=== PATIENT | male | born 1945 | race Caucasian/White ===

== ENCOUNTER → 2023-05-14 | Outpatient (CLI) | payer OTHER, MEDICARE, MEDICAID, SELFPAY ==
--- NOTE | 2023-05-14 16:54 | CT_ITS ---
PROCEDURE: CT RIGHT KNEE WITHOUT CONTRAST REASON FOR EXAM: Male, 77 years old. Preoperative planning for the MakoPlasty Robotic knee surgery. Knee pain. TECHNIQUE: Transaxial CT of the hip, knee and ankle were obtained. Coronal and sagittal reconstruction images of the knee were provided. Individualized dose optimization techniques were used for this CT. COMPARISON: None. FINDINGS: Standard protocol for the preoperative planning for the MakoPlasty robotic knee surgery was performed. Osteopenia with mild arthrosis of the right hip, right knee and right tibiotalar joint. CT/Extremity Lower without Contra IMPRESSION: Preoperative MakoPlasty Robotic knee surgical CT evaluation with findings as described above. Electronically Signed: Denny Shields MD at 12:06 EDT ,
== END | disposition home or self-care (01) ==
LOC: CT 16:33
PROVIDERS: PCP Internal Medicine; Referring Provider Student in an Organized Health Care Education/Training Program; Visit Provider Student in an Organized Health Care Education/Training Program
DX: M25.561 Pain in right knee (principal)
CPT/HCPCS: 73700

== ENCOUNTER 2023-05-23 10:57 | Observation (INO) | payer OTHER, SELFPAY ==
[2023-05-14 17:54] LABS: Magnesium 2.2 mg/dL (1.6-2.6)
[2023-05-23] VITALS (12 sets, daily range): BP systolic 82–139; BP diastolic 48–98; PULSE 56–75; RESP 13–22; TEMP 35.8–36.9; O2SAT 91–98; BMI 26.2
--- NOTE | 2023-05-23 | KNEE_PTH ---
PATIENT: JAROCHO BENÍTEZ LOC: MS3 U#:[id number] AGE/SX: 77/M ROOM: NV314 RE05/23/[address]: Dr. Dawson Bang DO : 1945 BED: 1 DIS: 05/24/2023 SPEC #: [id number] RECD: 05/23/23 12:16 STATUS: MILLICENT JULIETA #: [id number] TABITHA: 05/23/23 00:[address]: Dawson Bang DEPT: SURGICAL PATHOLOGY RECD BY: Jason Faustin ENTERED: 05/23/23 12:16 SP TYPE: TOTAL KNEE OTHR DR: MD Dr. Dawson Hewitt MD Tissues: Knee, NOS Procedures: Decalcification bone/plaque Surgery Specimen Level IV HEADER OPERATION: EDWINS, robotic assisted total knee arthroplasty PRE-OP DIAGNOSIS: Osteoarthritis right knee TISSUE SUBMITTED: Right knee bone and tissue MICROSCOPIC DIAGNOSIS Bone and tissue, right knee, total knee replacement/resection: Pieces of bone with degenerative osteoarthritic changes. Fibroadipose tissue, fibroconnective tissue and reactive synovial tissue. SJ:derrick 05/27/2023 MICROSCOPIC DESCRIPTION Slides are reviewed. GROSS DESCRIPTION Received is one container designated bone and tissue right knee. The specimen consists of multiple fragments of clark-yellow bone measuring in aggregate 16.0 x 15.0 x 1.5 cm. Also in the specimen container are multiple fragments of yellow-white soft tissue measuring in aggregate 10.0 x 7.0 x 2.0 cm. A number of bony fragments contain articular surfaces consistent with tibial plateau and femoral condyle and displaying prominent osteophyte formation, eburnation and bone erosion. Ornamental Metal Worker Helper sections are submitted in two cassettes as follows: 1 - soft tissue, 2 - bone after decalcification. / AM:derrick 05/23/2023 TC:5 CPT: 86131, 49620
[2023-05-23] MEDS: Celecoxib 200 MG Capsule 400 MG PO (06:08)
[2023-05-23] MEDS: Acetaminophen 500 MG Tablet 1000 MG PO ×3 (06:08→21:10)
[2023-05-23 06:09] LABS: Bedside Glucose 127 mg/dL (74-106)
[2023-05-23] MEDS: Gabapentin 600 MG Tablet PO (06:09)
--- NOTE | 2023-05-23 06:16 | EKG12_ITS ---
Test Reason : PRE-OP Blood Pressure : / mmHG Vent. Rate : 063 BPM Atrial Rate : 063 BPM P-R Int : 154 ms QRS Dur : 088 ms QT Int : 458 ms P-R-T Axes : 031 -03 205 degrees QTc Int : 468 ms Normal sinus rhythm ST & T wave abnormality, consider inferior ischemia ST & T wave abnormality, consider anterolateral ischemia Prolonged QT Abnormal ECG No previous ECGs available Confirmed by CALVIN HUGHES, LUCA ([id number]), editorial cartoonist FRANCISCA MEHTA ([id number]) on 05/27/2023 2:41:51 PM Referred By: Dawson Bang Confirmed By:LUCA SIMPSON MD
[2023-05-23] MEDS: Lactated Ringers 1,000 ML 15 ML IV ×2 (06:32→11:38)
[2023-05-23] MEDS: Magnesium 1 GM over 15 mins IV (06:33)
[2023-05-23] MEDS: Cefazolin 2 GM in 0.9% Normal Saline 100 ML IV ×2 (08:26→16:07)
[2023-05-23] MEDS: TXA 1000mg in NS100 100ml (IVPB at Closure) 660 MG IV (08:56)
[2023-05-23] MEDS: JPS (Morphine 10mg/ml) OPERA.SITE (10:00)
[2023-05-23] MEDS: dexAMETHasone 10 MG/ML Vial IV (10:12)
[2023-05-23] MEDS: TXA 1000mg in NS100 100ml (IVPB at Incision) 660 MG IV (10:20)
--- NOTE | 2023-05-23 11:37 | PCM.OPRPT ---
Report of Operation Date of Procedure: 05/23/23 Description of Surgical Findings:: Preoperative diagnosis: Right knee primary osteoarthritis Postoperative diagnosis: Right knee primary osteoarthritis Procedure: Cemented right total knee arthroplasty Surgeon: Dawson Bang DO Operations Support Professionals: Princess Rai PA-C Anesthesia: Spinal with sedation, adductor canal block Anesthesiologist: Dr. Awad Complications: None apparent Drains: None Estimated blood loss: 50 cc Urinary output: None recorded IV fluids: 1000 cc crystalloid Specimens: Total knee resections Surgical implants: Rossana triathlon X3 asymmetric patella size a 35 x 10 mm thickness, triathlon cruciate retaining femoral #6, primary tibial baseplate #6, triathlon X3 tibial bearing insert CS 11 mm thickness Indications: This is a 77-year-old male seen in the outpatient setting diagnosed with right knee osteoarthritis with significant varus deformity. He failed nonoperative management with intra-articular corticosteroid injections, activity modification, bracing, [id number] analgesics. X-rays revealed grade 4 medial compartment changes. He also had significant patellofemoral arthritis. I recommended a right total knee arthroplasty. The risk, benefits, alternatives to procedure reviewed with patient at length and he agreed to proceed. Risks included but were not limited to bleeding, infection, loss of life or limb, need for additional surgery, persistent pain, intraoperative or postoperative fracture, instability, loosening of components, wound complications, stiffness, neurovascular injury, DVT or PE. Patient expressed understanding these risks and wished to proceed with surgery. Informed consent was obtained in the outpatient setting. Description of procedure: Patient was identified in the preoperative holding area by name, medical record number, and date of . Informed consent was confirmed with the patient. The operative knee was marked with a surgical marker. At time of his procedure, patient brought to the operative suite and positioned supine a standard operating table. Anesthesia then administered a spinal anesthetic. He was then repositioned in the supine position with all bony prominences well-padded. We then placed a well-padded pneumatic tourniquet on the operative upper thigh. The right upper extremity was brought across patient's chest throughout the procedure. We then prepped and draped the operative lower extremity in a normal, sterile orthopedic fashion. We performed a timeout with all parties in attendance in agreement with the side, site, operation be performed. No concerns were voiced and would like to proceed with surgery. 2 g Ancef was administered prior to the incision by anesthesia staff as well as 1 g IV TXA. First I exsanguinated the right lower extremity with a Esmarch bandage. Tourniquet was inflated to 250 mmHg, which remained up for approximately 70 minutes. Esmarch was removed. I planned a standard midline approach to the left knee approximately 15 cm in length. Skin was sharply incised with a 10 blade scalpel developing full-thickness layers down to the retinaculum. Layers were developed identifying the VMO. I then planned a standard medial parapatellar arthrotomy performed in flexion. The anterior horn of the medial meniscus was released. Hoffa's fat pad was then released. I then everted the patella in extension and brought the knee into 90 degrees of flexion. The anterior horn of the lateral meniscus was then released. The ACL was split in its mid substance with a 10 blade. PCL was released with a posterior drawer and electrocautery. We then brought the knee back into extension. I measured the outer diameter of the patella to be approximately 46 mm, a patellar reamer was then selected. I measured the thickness of the patella to be 28 mm. I then reamed the patella to a depth of approximately 16 mm. A protective baseplate was then placed on the patella. I then placed pins in the metaphyseal distal femur medial to lateral for the Humble arrays. In similar fashion, I made a 2 cm incision approximately a handsbreadth distal to the tibial tubercle along the medial aspect of the tibia, drilling 2 bicortical pins for the tibial array. The knee was brought into flexion. The patella was subluxed laterally but not everted. Medial and lateral retractors were placed. We then utilized the LendFriend software to confirm our planned surgical procedure and oriented with the patient's osseous anatomy. All checks with the LendFriend system were confirmed. Patient had a significant fixed varus deformity after performing stress examination utilizing the Humble software. We elected to place the tibial baseplate in approximately 2 degrees degrees of varus to allow for appropriate balancing. Sawblade was then brought in. I first started with the tibial cut, ensuring protection of the MCL and patellar tendon. A tibial wafer was then excised. I then proceeded to make the posterior femoral, anterior, anterior chamfer cuts with the same blade. Ligaments were protected with Intermedics retractors. Sawblade was then exchanged to perform the distal femoral and posterior chamfer cuts. The robot was then removed from the surgical field. Remaining loose bone and meniscus was excised carefully. Posterior osteophytes were removed from the distal femur with a curved osteotome and rongeur. Trial components were then placed. Balance was excellent in both extension and 90 degrees flexion. No mid flexion instability was apparent. I then drilled for a size 35 patella. Patella was trialed. Tracking was excellent. We then marked for tibial baseplate. Distal femoral pegs were drilled. Tibial keel was punched. Trials were removed. Periarticular block was administered. The wound was copiously irrigated with normal saline solution. Simplex cement was then mixed on the back table. Components were then cemented in place with excess cement being removed. Cement was allowed to cure with the components in full extension utilizing a 11 mm trial polyethylene component. While the cement was curing, Betadine solution was irrigated into the wound and the wound edges. After cement had cured fully, trial polyethylene was removed. Tourniquet was deflated. Hemostasis was excellent. An additional 1 g TXA was administered IV. I selected a size 11 mm polyethylene which was placed and impacted per wheel and pinion inspector recommendations. Final components appeared very well balanced with excellent range of motion. There is no significant remaining flexion contracture. The wound was copiously irrigated with normal saline solution. Capsule was closed watertight with #1 strata fix barbed suture. Deeper bursal layer was reapproximated with 0 Vicryl suture. Dermis was reapproximated buried interrupted 2-0 Vicryl suture. Skin was finally reapproximated heather. Patient tolerated the procedure well without apparent complication. He was safely awakened in the operative suite, transferred to his hospital bed and subsequently to PACU in stable condition. Need for skilled educational program assistant: Princess Rai PA-C was critical to the outcome of the case. During the course of the procedure the physician educational program assistant played a vital role. Her intimate knowledge of my steps in the procedure aided in safe and expedient completion of the procedure. The PA played a vital role in positioning particularly in obtaining the appropriate positioning. The PA was also vital in the retraction of soft tissues during the exposure and protecting vital structures. The PA was also vital and protecting soft tissues during times of bony cuts. She also played a vital role in closure with my direct supervision. The PA was also important during reduction and dislocation of the joint and trials intraoperatively. Post Operative Plan: Patient will be placed in observation overnight due to age and comorbidities. Likely plan discharge home tomorrow. Hospitalist consult ordered for medical management of multiple comorbidities. Weightbearing: Range of motion and weightbearing as tolerated right lower extremity. Antibiotics: Ancef 2 g every 8 hours x 3 doses DVT Prophylaxis: Aspirin 81 mg twice daily, SCDs, early mobilization, ANTONY hose Brown: None Dressing: Maintain silver dressing x 5 days X-Rays: 2-week x-rays in the office. Follow-up: 2 weeks in my office for staple removal
[2023-05-23] MEDS: oxyCODONE 5 MG Tablet PO (18:00)
[2023-05-23] MEDS: Senna/Docusate Sodium 1 Tablet 2 TABLET PO (21:10)
[2023-05-23] MEDS: Lisinopril 20 MG Tablet PO (21:10)
[2023-05-24] MEDS: Cefazolin 2 GM in 0.9% Normal Saline 100 ML IV ×2 (01:49→07:40)
[2023-05-24 01:53] VITALS: BP 120/60; PULSE 60; RESP 18; TEMP 36.7; O2SAT 94
[2023-05-24 03:05] VITALS: BP 133/76; PULSE 55; RESP 18; TEMP 36.4; O2SAT 95
[2023-05-24] MEDS: Acetaminophen 500 MG Tablet 1000 MG PO ×2 (05:29→14:27)
[2023-05-24 06:10] LABS: Hematocrit 37.4 % (40-54); Hemoglobin 12.6 g/dL (13.0-16.5); Mean Corp Hgb Conc 33.7 g/dL (32-36); Mean Corpuscular Hgb 30.7 pg (27.0-32.0); Mean Platelet Vol. 9.6 fl (6.2-12.0); Platelet Count 187 K/mm3 (150-450); RBC Distribution Width SD 42.8 fl (35.1-43.9); Red Blood Count 4.11 M/mm3 (4.6-6.2)
[2023-05-24 06:36] LABS: Anion Gap 8 (5-15); BUN 27 mg/dL (7-18); BUN/Creat Ratio 23.5 RATIO (10-20); Calcium,Total 9.2 mg/dL (8.5-10.1); Chloride 109 mmol/L (98-107); Creatinine, Serum 1.15 mg/dL (0.70-1.30); EST Glomerular Filtration Rate 66 mL/min (>60); Est Glom Filt Rate - Afr Amer 79 mL/min (>60); Estimated Creatinine Clearance 61.76 ml/min; Glucose 150 mg/dL (74-106); Potassium 4.7 mmol/L (3.5-5.1); Sodium Level 136 mmol/L (136-145)
[2023-05-24 07:20] VITALS: BP 126/71; PULSE 59; RESP 16; TEMP 36.7; O2SAT 93
--- NOTE | 2023-05-24 07:47 | PN.ORTHO_ITS ---
Subjective Subjective Patient seen and examined. Denies any new complaints. Denies fevers, chills, nausea vomiting, chest pain or shortness of breath. Out of bed with therapy. Objective Data Objective Data Vital Signs: Vital Signs Temp Pulse Resp BP Pulse Ox O2 Del Method O2 Flow Rate 98.0 F 59 L 16 126/71 H 93 Room Air 2 05/24/23 07:20 05/24/23 07:20 05/24/23 07:20 05/24/23 07:20 05/24/23 07:20 05/24/23 07:20 05/24/23 01:55 Oxygen Flow Rate (L/min) 2 Oxygen Delivery Method Room Air Weight: 201 lb 12.626 oz Body Mass Index (BMI) 26.2 Intake & Output: Intake and Output for Last 24 Hours 05/22/23 05/23/23 05/24/23 23:59 23:59 23:59 Intake Total 1609.75 / 1609.75 110 / 110 Output Total 1025 / 1025 360 / 360 Balance 584.75 / 584.75 -250 / -250 Lab / Micro Data Result Diagrams: 05/24/23 05:54 05/24/23 05:54 Labs: Laboratory Results - last 24 hr 05/24/23 05:54: WBC 15.0 H, RBC 4.11 L, Hgb 12.6 L, Hct 37.4 L, MCV 91.0, MCH 30.7, MCHC 33.7, RDW Std Deviation 42.8, RDW Coeff of Wesley 13.0, Plt Count 187, MPV 9.6 05/24/23 05:54: Sodium 136, Potassium 4.7, Chloride 109 H, Carbon Dioxide 19.0 L , Anion Gap 8, BUN 27 H, Creatinine 1.15, Estim Creat Clear Calc 61.76, Est GFR (MDRD) Af Amer 79, Est GFR (MDRD) Non-Af 66, BUN/Creatinine Ratio 23.5 H, Glucose 150 H, Calcium 9.2 Micro: Microbiology 05/14/23 16:46 Swab (Method) Nasal Screen MRSA/MSSA - Final Physical Exam Narrative General - A&Ox3, NAD. VSS/AF Right lower extremity -incisional dressing C/D/I. SILT Sural, Saphenous, SPN, DPN, Tibial N. distributions. DP, PT 2+. BCR. DF, PF, EHL /5. No calf TTP. Assessment & Plan Assessment/Plan (1) History of total knee arthroplasty: PLAN: POD#1 s/p right robotic assisted total knee arthroplasty - Pain control - Medicine following for medical management - PT/OT - DVT PPX -aspirin 81 mg twice daily, SCDs, ANTONY hose, early mobilization - Case management - D/C planning Anticipate discharge to home today once cleared from internal medicine and PT/OT perspective. Patient has outpatient physical therapy scheduled for next week. Follow-up scheduled with me in 2 weeks.
--- NOTE | 2023-05-24 09:21 | PN.HOSP_ITS ---
Subjective Subjective Doing well, no issues overnight. Pain is controlled Objective Data Objective Data Vital Signs: Vital Signs Temp Pulse Resp BP Pulse Ox O2 Del Method O2 Flow Rate 98.0 F 59 L 16 126/71 H 93 Room Air 2 05/24/23 07:20 05/24/23 07:20 05/24/23 07:20 05/24/23 07:20 05/24/23 07:20 05/24/23 07:20 05/24/23 01:55 Oxygen Flow Rate (L/min) 2 Oxygen Delivery Method Room Air Weight: 201 lb 12.626 oz Body Mass Index (BMI) 26.2 Intake & Output: Intake and Output for Last 24 Hours 05/23/23 05/24/23 05/25/23 03:59 03:59 03:59 Intake Total 1719.75 / 1719.75 Output Total 1025 / 1025 360 / 360 Balance 694.75 / 694.75 -360 / -360 Lab / Micro Data Result Diagrams: 05/24/23 05:54 05/24/23 05:54 Labs: Laboratory Results - last 24 hr 05/24/23 05:54: WBC 15.0 H, RBC 4.11 L, Hgb 12.6 L, Hct 37.4 L, MCV 91.0, MCH 30.7, MCHC 33.7, RDW Std Deviation 42.8, RDW Coeff of Wesley 13.0, Plt Count 187, MPV 9.6 05/24/23 05:54: Sodium 136, Potassium 4.7, Chloride 109 H, Carbon Dioxide 19.0 L , Anion Gap 8, BUN 27 H, Creatinine 1.15, Estim Creat Clear Calc 61.76, Est GFR (MDRD) Af Amer 79, Est GFR (MDRD) Non-Af 66, BUN/Creatinine Ratio 23.5 H, Glucose 150 H, Calcium 9.2 Micro: Microbiology 05/14/23 16:46 Swab (Method) Nasal Screen MRSA/MSSA - Final Physical Exam Narrative General: Alert, Oriented x3, Cooperative, No apparent distress HEENT: Atraumatic, PERRLA, EOMI, Normocephalic Oral: Moist Mucosa Neck: Supple, No JVD Lungs: Clear to auscultation, Normal air movement, No rhonchi, No wheeze, No rales Cardiovascular: Regular rate, Regular Rhythm, Normal S1, Normal S2, No murmurs Abdomen: Soft, Non Tender, Non-Distended, No Hepato-splenomegaly Extremities: No edema, Capillary Refill Less than 3 Seconds Skin: Surgical dressing CDI Musculoskeletal: No Tenderness to Palpation of Joints or Extremities Neurological: Cranial nerves II-XII grossly intact, Motor Exam 5/5 strength throughout, Sensory exam intact to light touch and pain Psych/Mental Status: Normal Affect, Appropriate Assessment & Plan Assessment/Plan (1) History of total knee arthroplasty: PLAN: Plan 1. Status post right total knee arthroplasty ? Pain management per primary ? Medically stable for discharge, leukocytosis is likely reactive to surgery 2. Hypertension, type 2 diabetes, hyperlipidemia are all chronic medical additions which complicate his care. His home medications can be continued on discharge Charges/Coding Visit Charges Office Visits / Consults: 10766 OV L3 Est
--- NOTE | 2023-05-24 09:30 | CASEMGMT ---
RHODA CHENG Assessment: Face to Face with pt for initial transition planning/care coordination assessment. RHODA CHENG introduced self and role at [facility], pt voices understanding and consents to assessment. Pt is A/O x4 and answers all questions appropriately at this time. Pt sitting up in chair in no distress. Care providers, pharmacy, and demographics verified/updated. Admitting Dx: lap robotic total knee right PCP:Rene Specialists:[facility] Bang Preferred Pharmacy: [facility] Retail Insurance: [place] benefit Prescription Benefit: yes LNOK: Jodi Bolanos, Living Arrangements: Pt lives with in a two story home with 3 steps to enter. Pt is set up for main level. Pt reports he was I in ADL's and denies concerns at home. Pt able to assist if needed at home. Transportation: Pt drives self and denies concerns with transportation. Pt to transport to medical appts until pt can drive. DME/HHC/SNF: Pt has a [facility], cane and shower chair. Pt denies hx of HHC or SNF stays. Pt states no concerns with going home at time of dc. Pt has outpt therapy set up for Saturday at [place] [facility]. Pt states no further concerns/needs. CM to follow. Advised pt to ask CM if any further question/concerns/needs arise, voices understanding. Pt Goal: Home with outpt therapy already set up Plan: Home with outpt therapy already set up
[2023-05-24] MEDS: amLODIPine 10 MG Tablet PO (10:40)
[2023-05-24] MEDS: Aspirin 81 MG TAB.CHEW PO (10:41)
[2023-05-24] MEDS: Senna/Docusate Sodium 1 Tablet 2 TABLET PO (10:41)
[2023-05-24] MEDS: Famotidine 20 MG Tablet PO (10:41)
[2023-05-24 14:14] VITALS: BP 136/66; PULSE 70; RESP 18; TEMP 36.6; O2SAT 95
[2023-05-24] MEDS: oxyCODONE 5 MG Tablet PO (14:28)
--- NOTE | 2023-05-24 14:40 | DS.PCM_ITS ---
Providers Date of Admission: 05/23/23 Primary Care Physician: Dr. Renee López MD Consultations 05/23/23 10:56 Consult: Hospitalist Routine Consulting Provider: Dawson Zhang Reason for Consult: Post op right total knee medical management EMERGENT Consult: No Notified: Yes Date Notified: 05/23/23 Time Notified: 12:10 Method of Notification: Text Reason For Visit: LAP ROBOTIC TOTAL KNEE ERAS RIGHT Diagnosis Discharge Diagnosis (1) History of total knee arthroplasty: Status: Acute Code(s): Z96.659 - Presence of unspecified artificial knee joint Plan: POD#1 s/p right robotic assisted total knee arthroplasty - Pain control - Medicine following for medical management - PT/OT - DVT PPX -aspirin 81 mg twice daily, SCDs, ANTONY hose, early mobilization - Case management - D/C planning Anticipate discharge to home today once cleared from internal medicine and PT/OT perspective. Patient has outpatient physical therapy scheduled for next week. Follow-up scheduled with me in 2 weeks. Medications at Discharge Home Medications albuterol sulfate 90 mcg/actuation aerosol inhaler 1 inh inhalation Q6H PRN SOB 05/14/23 amlodipine 10 mg tablet 10 mg PO DAILY 05/14/23 aspirin 81 mg tablet,delayed release 81 mg PO QHS 05/14/23 cholecalciferol (vitamin D3) 50 mcg (2,000 unit) capsule (Vitamin D3) 50 mcg PO DAILY 05/14/23 diphenhydramine 25 mg-acetaminophen 500 mg tablet (Tylenol PM Extra Strength) 2 tab PO QHS 05/14/23 finasteride 5 mg tablet 5 mg PO QHS 05/14/23 lisinopril 20 mg tablet 20 mg PO QHS 05/14/23 metformin 500 mg tablet,extended release 24 hr 500 mg PO BID 05/14/23 multivitamin 1 cap PO DAILY 05/14/23 naproxen sodium 220 mg tablet (Aleve) 440 mg PO BID 05/14/23 rosuvastatin 20 mg tablet (Crestor) 20 mg PO QODAY 05/14/23 Hospital Course Summary of Care Provided Minutes Spent on Discharge: 15 Hospital Course: Patient underwent uncomplicated right robotic assisted total knee arthroplasty with myself on 05/23/2023. He tolerated procedure well without apparent complication. He was placed in observation postoperatively for medical monitor ing and early convalescence. He worked well with physical occupational therapies. An internal medicine consult was placed for medical management. Patient was able to be safely discharged to home on postoperative day #1 with planned outpatient physical therapy. Physical Exam Narrative General - A&Ox3, NAD. VSS/AF Right lower extremity -incisional dressing C/D/I. SILT Sural, Saphenous, SPN, DPN, Tibial N. distributions. DP, PT 2+. BCR. DF, PF, EHL 5/5. No calf TTP. Weight / BMI Weight Weight: 201 lb 12.626 oz Body Mass Index (BMI) 26.2 ABG / Lab / Microbiology Data Result Diagrams: 05/24/23 05:54 05/24/23 05:54 Laboratory: Laboratory Results - last 24 hr 05/24/23 05:54: WBC 15.0 H, RBC 4.11 L, Hgb 12.6 L, Hct 37.4 L, MCV 91.0, MCH 30.7, MCHC 33.7, RDW Std Deviation 42.8, RDW Coeff of Wesley 13.0, Plt Count 187, MPV 9.6 05/24/23 05:54: Sodium 136, Potassium 4.7, Chloride 109 H, Carbon Dioxide 19.0 L , Anion Gap 8, BUN 27 H, Creatinine 1.15, Estim Creat Clear Calc 61.76, Est GFR (MDRD) Af Amer 79, Est GFR (MDRD) Non-Af 66, BUN/Creatinine Ratio 23.5 H, Glucose 150 H, Calcium 9.2 Microbiology: Microbiology 05/14/23 16:46 Swab (Method) Nasal Screen MRSA/MSSA - Final Meaningful Use Info Meaningful Use Diagnoses (Choose all that apply): None applicable Discharge Plan Admission Admit Date/Time: 05/23/23 10:57 Primary Reason for Your Visit: Right total knee arthroplasty Attending Provider: Dawson Bang Primary Care Provider: Renee López Consulting Providers: Dawson Zhang Instructions Additional Instructions / Restrictions: Follow preprinted instructions from your surgeons office. Discharge Orders/Prescriptions Prescriptions: Continued lisinopril 20 mg Tablet 20 mg PO QHS aspirin 81 mg Tablet,Delayed Release (Dr/Ec) 81 mg PO QHS amlodipine 10 mg Tablet 10 mg PO DAILY naproxen sodium [Aleve] 220 mg Tablet 440 mg PO BID diphenhydramine-acetaminophen [Tylenol PM Extra Strength] 25-500 mg Tablet 2 tab PO QHS multivitamin Capsule 1 cap PO DAILY metformin 500 mg Tablet Extended Release 24 Hr 500 mg PO BID finasteride 5 mg Tablet 5 mg PO QHS rosuvastatin [Crestor] 20 mg Tablet 20 mg PO QODAY cholecalciferol (vitamin D3) [Vitamin D3] 50 mcg (2,000 unit) Capsule 50 mcg PO DAILY albuterol sulfate 90 mcg/actuation Hfa Aerosol Inhaler 1 inh INHALATION Q6H PRN (Reason: SOB) Referrals / Follow Up: Renee López MD [Primary Care Provider] - Dawson Bang DO [Med Staff - Active Staff] - Disposition Disposition (needs filled in before D/C Order can be placed): Home, Self Care
== END 2023-05-24 16:15 | disposition home or self-care (01) ==
LOC: SDC 11:04 → MS3 11:04
PROVIDERS: Anesthesiology; Admitting Provider Student in an Organized Health Care Education/Training Program; PCP Internal Medicine; Referring Provider Student in an Organized Health Care Education/Training Program; Visit Provider Student in an Organized Health Care Education/Training Program
PROC: 0SRC0JZ Replacement of Right Knee Joint with Synthetic Substitute, Open Approach (ICD-10-PCS; CPT 27447; principal; 2023-05-23 07:00)
DX: M17.11 Unilateral primary osteoarthritis, right knee (principal); E11.9 Type 2 diabetes mellitus without complications; M21.161 Varus deformity, not elsewhere classified, right knee; I10 Essential (primary) hypertension; E78.00 Pure hypercholesterolemia, unspecified; Z79.899 Other long term (current) drug therapy; Z79.82 Long term (current) use of aspirin; Z79.84 Long term (current) use of oral hypoglycemic drugs; Z87.891 Personal history of nicotine dependence; R06.02 Shortness of breath
CPT/HCPCS: 27447; 01402; S2900; 64447; 36415; 80048; 82962; 83735; 85027; 87081; 88305; 88311; 93005; 94668; 96365; 96366; 97110; 97116; 97162; 97166; 97530; 99221; C1776; J7120; G0378; J2405; J3475

== ENCOUNTER 2023-05-27 21:46 | Emergency (ER) | payer OTHER, SELFPAY ==
[2023-05-27 21:47] VITALS: BP 161/82; PULSE 107; RESP 24; TEMP 36.4; O2SAT 96; BMI 26.6
[2023-05-27] MEDS: Lidocaine Jelly 2% 20 ML Syringe (URO-JET) 1 APPLIC TOPICAL (22:38)
--- NOTE | 2023-05-27 23:10 | RAD_ITS ---
STUDY: X-RAY - ABDOMEN/PELVIS REASON FOR EXAM: Male, 77 years old. Constipation. Recent knee replacement. TECHNIQUE: Two AP supine views of the abdomen and pelvis. COMPARISON: None. FINDINGS: Normal visualized lung bases. There is mildly distended air-filled small bowel loops in the central abdomen. There is feces in the colon without dilatation. There is no demonstrated free abdominal air. The visualized liver, spleen and kidneys are grossly normal in size and morphology. Normal soft tissue structures. There are diffuse degenerative changes of the visualized lumbar spine. RAD/Abdomen Single View IMPRESSION: Question ileus versus incomplete or early small bowel obstruction. Electronically Signed: Demarco Siddiqui DO at 23:34 EDT ,
--- NOTE | 2023-05-27 23:40 | EDS_ITS ---
HPI History of Present Illness Chief Complaint: Constipation Detail of Chief Complaint: Constipation and unable to urinate Informant: patient Narrative Narrative: Patient presents secondary constipation and difficulty urinating. He states his last normal bowel movement was last Saturday. On he had knee replacement surgery. Since this afternoon he is having difficulty passing urine. He states he feels like he needs to urinate but only get a few dribbles out. He has not been passing much gas today but did pass gas yesterday. He is only been able to pass a few small [place] of stool. He is currently on Percocet for pain. [facility] Medical History Alcohol use Diabetes Dietary restriction Fatty liver Former smoker Heartburn High cholesterol History of echocardiogram History of edema History of pain when walking History of stress test Hypertension Leg cramps Prostate disease Shortness of breath on exertion TIA (transient ischemic attack) Wears dentures Wears glasses Wears hearing aid Home Medications albuterol sulfate 90 mcg/actuation aerosol inhaler 1 inh inhalation Q6H PRN SOB 05/14/23 [History Last Taken Unknown] amlodipine 10 mg tablet 10 mg PO DAILY 05/14/23 [History Last Taken 05/23/23 04:30] aspirin 81 mg tablet,delayed release 81 mg PO QHS 05/14/23 [History Last Taken 05/22/23] cholecalciferol (vitamin D3) 50 mcg (2,000 unit) capsule (Vitamin D3) 50 mcg PO DAILY 05/14/23 [History Last Taken 05/18/23] diphenhydramine 25 mg-acetaminophen 500 mg tablet (Tylenol PM Extra Strength) 2 tab PO QHS 05/14/23 [History Last Taken 05/18/23] finasteride 5 mg tablet 5 mg PO QHS 05/14/23 [History Last Taken 05/22/23] lisinopril 20 mg tablet 20 mg PO QHS 05/14/23 [History Last Taken 05/22/23] metformin 500 mg tablet,extended release 24 hr 500 mg PO BID 05/14/23 [History Last Taken 05/22/23] multivitamin 1 cap PO DAILY 05/14/23 [History Last Taken 05/18/23] naproxen sodium 220 mg tablet (Aleve) 440 mg PO BID 05/14/23 [History Last Taken 05/18/23] rosuvastatin 20 mg tablet (Crestor) 20 mg PO QODAY 05/14/23 [History Last Taken 05/22/23] oxycodone-acetaminophen 5 mg-325 mg tablet 1 - 2 tab PO Q6H PRN Pain 05/27/23 [History Last Taken Unknown] Allergy/AdvReac Type Severity Reaction Status Date / Time bee venom protein (honey bee) Allergy Hives Verified 05/27/23 21:48 [bee stings] Gadolinium-MRI Contrast Allergy Hives Verified 05/27/23 21:48 Medium [contrast dye] Surgical History H/O arthroscopic knee surgery Hx of colonoscopy Hx of elbow surgery Hx of lumbar discectomy Hx of removal of testicle Hx of tonsillectomy Social History Smoking Status: Former smoker ROS ROS ED Constitutional Constitutional ED: Denies chills or fever(s) Eyes Eyes: Denies change in vision ENT ENT ED: Denies rhinorrhea or sore throat Cardiovascular Cardiovascular: Denies chest pain or palpitations Respiratory/Chest Respiratory/Chest: Denies cough or dyspnea Gastrointestinal Gastrointestinal: Reports abdominal pain and constipation; Denies nausea or vomiting Genitourinary Genitourinary ED: Reports difficulty urinating Musculoskeletal Musculoskeletal: Denies back pain or extremity pain Integumentary Denies Abrasions or rash Neurologic Neurologic: Denies headache(s) or weakness Psychiatric Psychiatric: Denies anxiety or depression Allergic/Immunologic Allergic/Immunologic ED: Denies lip swelling or urticaria EXAM Physical Exam Const Vital Signs: 05/27/23 21:47 Temperature 97.5 F L Temperature Source Temporal Pulse Rate 107 H Respiratory Rate 24 H Blood Pressure 161/82 H Blood Pressure Mean 108 Pulse Ox 96 Oxygen Delivery Method Room Air Positive well nourished and well developed General Appearance ED: well developed HEENT Reports moist mucous membranes Chest Wall inspection of chest normal and palpation of chest normal Resp normal respiratory effort and clear to auscultation bilaterally Cardio regular rate and regular rhythm GI GI Narrative: Abdomen soft but distended. Regular to hyperactive bowel sounds noted. Extremity Extremity Narrative: Dressing in place over the anterior right knee. Appropriate postop edema and tenderness noted. Neuro oriented x3 Psych mental status grossly normal MDM MDM MDM Narrative Medical decision making narrative: Brown catheter was placed with nursing staff. Patient states that initially 800 cc of urine were drained. He is sent for abdominal x-ray. On repeat abdominal exam he has hypoactive irregular bowel sounds. Lab Data Labs: Laboratory Results - last 24 hr 05/28/23 00:08 Urine Color Yellow Urine Clarity Clear Urine pH 6.0 Ur Specific [place] 1.015 Urine Protein 30 H Urine Glucose (UA) 250 H Urine Ketones Negative Urine Occult Blood 250 H Urine Nitrite Negative Urine Bilirubin Negative Urine Urobilinogen Normal Ur Leukocyte Esterase Negative Urine RBC 10-25 SEEN Urine WBC 0 SEEN Ur Squamous Epith Cells 0 SEEN Urine Bacteria 0 SEEN Urine Mucus 0 SEEN Radiography Diagnostic Testing: Clinical Impression(s) from Imaging Studies KUB X-Ray 05/27/23 23:10 IMPRESSION: Question ileus versus incomplete or early small bowel obstruction. Electronically Signed: Demarco Siddiqui, at 23:34 EDT Reading Location ID and State: [address] [place] [address] Tel [phone], Service support , Treatment and Re-Evaluation :: Urinalysis was sent and reveals no evidence of infection. Abdominal x-ray per my interpretation reveals slightly distended small bowel loops. Stool noted in both the ascending and descending colon. Patient was given a soapsuds enema. He did have good results with this. Radiology interpretation is reviewed and does feel there may be an ileus. Patient is passing gas and stool at this time. He will be sent home with a leg bag and was instructed to walk to keep his bowels moving. Return instructions given. Discharge Plan Triage Chief Complaint: Constipation ED Provider: Lorin Brantley Dx/Rx/DC Orders Clinical Impression: Urinary retention, Constipation Instructions: ED Constipation (Adult), ED Urinary Retention, Male Prescriptions: No Action lisinopril 20 mg Tablet 20 mg PO QHS aspirin 81 mg Tablet,Delayed Release (Dr/Ec) 81 mg PO QHS amlodipine 10 mg Tablet 10 mg PO DAILY naproxen sodium [Aleve] 220 mg Tablet 440 mg PO BID diphenhydramine-acetaminophen [Tylenol PM Extra Strength] 25-500 mg Tablet 2 tab PO QHS multivitamin Capsule 1 cap PO DAILY metformin 500 mg Tablet Extended Release 24 Hr 500 mg PO BID finasteride 5 mg Tablet 5 mg PO QHS rosuvastatin [Crestor] 20 mg Tablet 20 mg PO QODAY cholecalciferol (vitamin D3) [Vitamin D3] 50 mcg (2,000 unit) Capsule 50 mcg PO DAILY albuterol sulfate 90 mcg/actuation Hfa Aerosol Inhaler 1 inh INHALATION Q6H PRN (Reason: SOB) oxycodone-acetaminophen 5-325 mg Tablet 1 - 2 tab PO Q6H PRN (Reason: Pain) Primary Care Provider: Renee López Referrals: Renee López MD [Primary Care Provider] - 3-5 Days Disposition Disposition: Home, Self Care
[2023-05-27 23:46] VITALS: RESP 18
[2023-05-28 00:13] LABS: Bacteria 0 SEEN /hpf (None Seen); Mucous, Urine 0 SEEN /hpf (<or=2+); Squamous Epithelial Cells - UA 0 SEEN /hpf (0-5); White Blood Cells 0 SEEN /hpf (0-5)
[2023-05-28 00:14] LABS: Color, Urine Yellow (Yellow); Glucose, Dipstick 250 mg/dl (Normal); Ketone-Dipstick Negative (Negative); Leukocyte Esterase-Dipstick Negative /ul (Negative); Nitrite-Dipstick Negative (Negative); Occult Blood-Urine 250 /ul (Negative); Protein-Dipstick 30 mg/dl (Negative); Specific Gravity, Urine 1.015 (1.002-1.030); Urine Bilirubin Dipstick Negative (Negative); Urine Clarity Clear (Clear); Urine Urobilinogen Normal (Normal)
[2023-05-28 00:34] LABS: Red Blood Cells-Urine 10-25 SEEN /hpf (0-5)
== END 2023-05-28 01:24 | disposition home or self-care (01) ==
PROVIDERS: Emergency Provider Emergency Medicine; PCP Internal Medicine; Visit Provider Emergency Medicine
DX: K59.00 Constipation, unspecified (principal); E11.9 Type 2 diabetes mellitus without complications; Z87.891 Personal history of nicotine dependence; E78.00 Pure hypercholesterolemia, unspecified; R33.9 Retention of urine, unspecified; I10 Essential (primary) hypertension; Z86.73 Personal history of transient ischemic attack (TIA), and cerebral infarction without residual deficits; Z79.82 Long term (current) use of aspirin; Z79.84 Long term (current) use of oral hypoglycemic drugs
CPT/HCPCS: 51702; 74018; 81001; 87086; 99285

== ENCOUNTER → 2024-06-26 | Outpatient (CLI) | payer OTHER, SELFPAY ==
--- NOTE | 2024-06-26 08:50 | RAD_ITS ---
PROCEDURE: Sniff test. DATE OF EXAMINATION: June 26, 2024. INDICATION: Male, 78 years old. Chronic dyspnea. FLUOROSCOPY TIME (if supplied): (29 seconds) minutes/seconds. 44.1 mGy Fluoroscopic imaging was provided. There is elevation of the right hemidiaphragm. Normal movement of both the right and left hemidiaphragms. RAD/Fluoroscopy 1 Hr or Less IMPRESSION: Normal diaphragmatic movement during inspiration and expiration maneuvers. Electronically Signed: Yao Garcia MD at 9:31 EDT ,
== END | disposition home or self-care (01) ==
LOC: RAD 08:41
PROVIDERS: PCP Internal Medicine
DX: R06.09 Other forms of dyspnea (principal)
CPT/HCPCS: 76000